=== PATIENT | male | born 1955 | race Caucasian/White ===

== ENCOUNTER 2023-05-05 11:19 | Outpatient (CLI) | payer OTHER | END 2023-05-05 11:20 | disposition home or self-care (01) | LOC: NM 11:19 | PROVIDERS: ATTEND Internal Medicine Endocrinology, Diabetes & Metabolism | DX: C73 Malignant neoplasm of thyroid gland (principal) | CPT/HCPCS: 79005; A9517 ×2 ==

== ENCOUNTER 2023-05-14 13:28 | Outpatient (CLI) | payer OTHER | END 2023-05-14 13:29 | disposition home or self-care (01) | LOC: NM 13:28 | PROVIDERS: ATTEND Internal Medicine Endocrinology, Diabetes & Metabolism | DX: C73 Malignant neoplasm of thyroid gland (principal) | CPT/HCPCS: 78018 ==